=== PATIENT | male | born 1975 | race Caucasian/White ===

== ENCOUNTER → 2023-07-19 10:57 | Outpatient (REF) | payer BC, SELFPAY | LOC: RAD 10:57 | PROVIDERS: ATTENDING PHYSICIAN Internal Medicine Cardiovascular Disease; FAMILY PHYSICIAN Nurse Practitioner Primary Care | DX: I51.7 Cardiomegaly (principal); I25.10 Atherosclerotic heart disease of native coronary artery without angina pectoris; R07.9 Chest pain, unspecified; R06.02 Shortness of breath | CPT/HCPCS: 75574; Q9967 ==

== ENCOUNTER → 2024-03-30 13:42 | Outpatient (REF) | payer BC, SELFPAY | LOC: RCS 13:42 | PROVIDERS: ATTENDING PHYSICIAN Nurse Practitioner; FAMILY PHYSICIAN Nurse Practitioner Primary Care | DX: R06.02 Shortness of breath (principal) | CPT/HCPCS: 93306 ==

== ENCOUNTER → 2025-03-29 11:09 | Outpatient (REF) | payer BC, SELFPAY | LOC: HWRAD 11:09 | PROVIDERS: ATTENDING PHYSICIAN Nurse Practitioner Primary Care | DX: Z85.528 Personal history of other malignant neoplasm of kidney (principal); Z90.5 Acquired absence of kidney; R35.0 Frequency of micturition | CPT/HCPCS: 76770 ==